=== PATIENT | female | born 1985 | race American Indian/Alaskan Native ===

== ENCOUNTER 2018-08-21 19:23 | Emergency (ER) | payer MEDICAID ==
--- NOTE | 2018-08-21 20:01 | EDM.PDOC ---
ED HPI GENERAL MEDICAL PROBLEM - General Chief Complaint: NUTRITIONAL ASSISTANT Problem Stated Complaint: PT 6WKS AND BLEEDING Time Seen by Provider: 08/21/18 19:52 - History of Present Illness INITIAL COMMENTS - FREE TEXT/NARRATIVE: HISTORY AND PHYSICAL: History of present illness: The patient is a 32-year-old female who is a one para 0 with last menstrual period July 10 and estimated gestational age of this at 6 weeks 0 days and who presents with vaginal spotting that started about 2-3 hours ago. She says that when she wipes when she goes to the bathroom she sees some blood on the toilet paper but she is not passing blood or needing to use any pads. Her last sexual intercourse was several days ago and she has only slight pelvic cramping but no urinary complaints flank pain fever chills nausea or vomiting. She says she's been eating and drinking normally. Patient said she had a confirmed by testing at the [facility] but she has not had even a quick ultrasound to document an intrauterine . She denies STDs or any gynecologic surgeries and no ectopic risk factors. She has not started her care area and she says she is very concerned because of her advanced maternal age and her symptoms. Review of systems: As per history of present illness and below otherwise all systems reviewed and negative. Past medical history: As per history of present illness and as reviewed below otherwise noncontributory. Surgical history: As per history of present illness and as reviewed below otherwise noncontributory. Social history: No reported history of drug or alcohol abuse. Family history: As per history of present illness and as reviewed below otherwise noncontributory. Physical exam: General: Well-developed well-nourished female who is nontoxic and vital signs were noted by me HEENT: Atraumatic, normocephalic, negative for conjunctival pallor or scleral icterus, mucous membranes moist, throat clear, neck supple, nontender, trachea midline. Lungs: Clear to auscultation, breath sounds equal bilaterally, chest nontender. Heart: S1S2, regular rate and rhythm no overt murmurs Abdomen: Soft, nondistended, nontender. Negative for masses or hepatosplenomegaly. Slightly hypoactive bowel sounds Pelvis: Stable nontender. Genitourinary: Deferred. Rectal: Deferred. Extremities: Atraumatic, negative for cords or calf pain. Neurovascular unremarkable. No pedal edema Neuro: Awake, alert, oriented. Cranial nerves II through XII unremarkable. Cerebellum unremarkable. Motor and sensory unremarkable throughout. Exam nonfocal. Diagnostics: UA CBC CMP serum quantitative hCG ABO pelvic ultrasound Therapeutics: Patient and significant other at bedside are aware of all testing results and I will advise close follow-up with the clinic for reevaluation and further care and advised strict pelvic rest. Impression: Threatened Definitive disposition and diagnosis as appropriate pending reevaluation and review of above. 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: Musculoskeletal History: Reports: Fracture Other Musculoskeletal History: sx L leg Neurological History: Reports: Migraines Psychiatric History: Reports: Anxiety - Infectious Disease History Infectious Disease History: Reports: Chicken Pox Social & Family History - Tobacco Use Smoking Status *Q: Former Smoker Used Tobacco, but Quit: Yes Month/Year Tobacco Last Used: 2008 - Recreational Drug Use Recreational Drug Use: Yes Recreational Drug Type: Reports: Marijuana/Hashish Recreational Drug Use Frequency: Not Used In Over 2 Months ED ROS GENERAL - Review of Systems Review Of Systems: ROS reveals no pertinent complaints other than HPI. ED EXAM, GENERAL - Physical Exam Exam: See Below (See dictation) Course - Vital Signs Last Recorded V/S: Last Vital Signs Temp 36.4 C 08/21/18 19:43 Pulse 71 08/21/18 19:43 Resp 18 08/21/18 19:43 BP 148/79 H 08/21/18 19:43 Pulse Ox 99 08/21/18 19:43 - Orders/Labs/Meds Labs: Laboratory Tests 08/21/18 08/21/18 08/21/18 Range/Units 19:41 19:41 19:54 WBC 5.86 (4.0-11.0) K/uL RBC 4.57 (4.30-5.90) M/uL Hgb 14.5 (12.0-16.0) g/dL Hct 42.7 (36.0-46.0) % MCV 93.4 (80.0-98.0) fL MCH 31.7 (27.0-32.0) pg MCHC 34.0 (31.0-37.0) g/dL RDW Std Deviation 45.3 (28.0-62.0) fl RDW Coeff of Selina 13 (11.0-15.0) % Plt Count 374 (150-400) K/uL MPV 9.40 (7.40-12.00) fL Neut % (Auto) 59.0 (48.0-80.0) % Lymph % (Auto) 27.0 (16.0-40.0) % [place] % (Auto) 13.1 (0.0-15.0) % Eos % (Auto) 0.7 (0.0-7.0) % Baso % (Auto) 0.2 (0.0-1.5) % Neut # (Auto) 3.5 (1.4-5.7) K/uL Lymph # (Auto) 1.6 (0.6-2.4) K/uL [place] # (Auto) 0.8 (0.0-0.8) K/uL Eos # (Auto) 0.0 (0.0-0.7) K/uL Baso # (Auto) 0.0 (0.0-0.1) K/uL Nucleated RBC % 0.0 /100WBC Nucleated RBCs # 0 K/uL Sodium (136-145) mmol/L Potassium (3.5-5.1) mmol/L Chloride (98-107) mmol/L Carbon Dioxide (21.0-32.0) mmol/L BUN (7.0-18.0) mg/dL Creatinine (0.6-1.0) mg/dL Est Cr Clr Drug Dosing mL/min Estimated GFR (MDRD) ml/min Glucose (74-106) mg/dL Calcium (8.5-10.1) mg/dL Total Bilirubin (0.2-1.0) mg/dL AST (15-37) IU/L ALT (14-63) IU/L Alkaline Phosphatase (46-116) U/L Total Protein (6.4-8.2) g/dL Albumin (3.4-5.0) g/dL Globulin (2.6-4.0) g/dL Albumin/Globulin Ratio (0.9-1.6) HCG, Quant mIU/mL Urine Color YELLOW Urine Appearance CLEAR Urine pH 6.0 (5.0-8.0) Ur Specific Williams 1.010 (1.001-1.035) Urine Protein NEGATIVE (NEGATIVE) mg/dL Urine Glucose (UA) NEGATIVE (NEGATIVE) mg/dL Urine Ketones NEGATIVE (NEGATIVE) mg/dL Urine Occult Blood NEGATIVE (NEGATIVE) Urine Nitrite NEGATIVE (NEGATIVE) Urine Bilirubin NEGATIVE (NEGATIVE) Urine Urobilinogen 0.2 (<2.0) EU/dL Ur Leukocyte Esterase NEGATIVE (NEGATIVE) Urine HCG, Qual POSITIVE (NEGATIVE) Blood Type 08/21/18 08/21/18 Range/Units 19:54 19:54 WBC (4.0-11.0) K/uL RBC (4.30-5.90) M/uL Hgb (12.0-16.0) g/dL Hct (36.0-46.0) % MCV (80.0-98.0) fL MCH (27.0-32.0) pg MCHC (31.0-37.0) g/dL RDW Std Deviation (28.0-62.0) fl RDW Coeff of Selina (11.0-15.0) % Plt Count (150-400) K/uL MPV (7.40-12.00) fL Neut % (Auto) (48.0-80.0) % Lymph % (Auto) (16.0-40.0) % [place] % (Auto) (0.0-15.0) % Eos % (Auto) (0.0-7.0) % Baso % (Auto) (0.0-1.5) % Neut # (Auto) (1.4-5.7) K/uL Lymph # (Auto) (0.6-2.4) K/uL [place] # (Auto) (0.0-0.8) K/uL Eos # (Auto) (0.0-0.7) K/uL Baso # (Auto) (0.0-0.1) K/uL Nucleated RBC % /100WBC Nucleated RBCs # K/uL Sodium 140 (136-145) mmol/L Potassium 3.7 (3.5-5.1) mmol/L Chloride 103 (98-107) mmol/L Carbon Dioxide 25.4 (21.0-32.0) mmol/L BUN 10 (7.0-18.0) mg/dL Creatinine 0.8 (0.6-1.0) mg/dL Est Cr Clr Drug Dosing 101.84 mL/min Estimated GFR (MDRD) > 60.0 ml/min Glucose 101 (74-106) mg/dL Calcium 9.6 (8.5-10.1) mg/dL Total Bilirubin 0.3 (0.2-1.0) mg/dL AST 32 (15-37) IU/L ALT 103 H (14-63) IU/L Alkaline Phosphatase 69 (46-116) U/L Total Protein 8.6 H (6.4-8.2) g/dL Albumin 4.0 (3.4-5.0) g/dL Globulin 4.6 H (2.6-4.0) g/dL Albumin/Globulin Ratio 0.9 (0.9-1.6) HCG, Quant 4474.0 mIU/mL Urine Color Urine Appearance Urine pH (5.0-8.0) Ur Specific Williams (1.001-1.035) Urine Protein (NEGATIVE) mg/dL Urine Glucose (UA) (NEGATIVE) mg/dL Urine Ketones (NEGATIVE) mg/dL Urine Occult Blood (NEGATIVE) Urine Nitrite (NEGATIVE) Urine Bilirubin (NEGATIVE) Urine Urobilinogen (<2.0) EU/dL Ur Leukocyte Esterase (NEGATIVE) Urine HCG, Qual (NEGATIVE) Blood Type A POSITIVE Departure - Departure Time of Disposition: 21:49 Disposition: Home, Self-Care 01 Condition: Good Clinical Impression: Threatened - Discharge Information Referrals: PCP,None [Primary Care Provider] - Forms: ED Department Discharge Additional Instructions: The following information is given to patients seen in the emergency department who are being discharged to home. This information is to outline your options for follow-up care. We provide all patients seen in our emergency department with a follow-up referral. The need for follow-up, as well as the timing and circumstances, are variable depending upon the specifics of your emergency department visit. If you don't have a primary care physician on staff, we will provide you with a referral. We always advise you to contact your personal physician following an emergency department visit to inform them of the circumstance of the visit and for follow-up with them and/or the need for any referrals to a consulting specialist. The emergency department will also refer you to a specialist when appropriate. This referral assures that you have the opportunity for followup care with a specialist. All of these measure are taken in an effort to provide you with optimal care, which includes your followup. Under all circumstances we always encourage you to contact your private physician who remains a resource for coordinating your care. When calling for followup care, please make the office aware that this follow-up is from your recent emergency room visit. If for any reason you are refused follow-up, please contact the [facility] emergency department at and ask to speak to the emergency department charge nurse. [facility] [address] [facility] [address] [place] [address] Strict pelvic rest with no sexual intercourse and nothing in the vagina until followed up in the clinic. Please connect for care so that your symptoms can be reassessed using resources given to above. Return to ER as needed and as discussed and push hydration
[2018-08-21 20:59] LABS: CHLORIDE,CL 103 mmol/L (98-107); SODIUM,NA 140 mmol/L (136-145)
--- NOTE | 2018-08-21 21:48 | US ---
INDICATION: Vaginal bleeding with pelvic cramping TECHNIQUE: Ultrasound OB pelvis transvaginal. Real time andres scale imaging of the pelvis was performed. COMPARISON: None FINDINGS: Gestational sac: Sonographic imaging demonstrates a single intrauterine gestation with a normal appearance, measuring 9 x 4 x 8 mm with estimated gestational age of 5 weeks, 2 days. Trace perichorionic hemorrhage noted.The amount of fluid within the sac appears appropriate for gestational age. Fetus: No pole or yolk sac is identified. There is a normal appearing yolk sac. Placenta: The placenta has not yet developed. Pelvis: The visualized cervix is not visualized. The visualized myometrium appears normal. The ovaries are of normal size. A thick walled corpus luteal cyst is present within the right ovary. No significant ascites noted. IMPRESSION: 1. By the 2012 Society of Radiologists in Ultrasound consensus panel criteria, there is an early intrauterine of approximately 5 weeks, 2 days in age and is of unknown viability. Followup beta HCG and ultrasound is recommended to document a normal IUP and exclude blighted ovum. 2. There is a trace paracoronal hemorrhage seen. Dictated by Damir Grullon MD @ 08/21/2018 9:45:53 PM Dictated by: Damir Grullon MD @ 08/21/2018 21:46:20 (Electronically Signed)
== END 2018-08-21 22:16 | disposition home or self-care (01) ==
LOC: MW.ED 19:23
DX: O20.0 Threatened abortion (principal); Z87.891 Personal history of nicotine dependence; Z3A.01 Less than 8 weeks gestation of pregnancy
CPT/HCPCS: 36415; 76801; 76801-26; 80053; 81003; 81025; 84702; 85025; 86900; 86901; 99284-25

== ENCOUNTER 2018-09-20 10:24 | Emergency (ER) | payer MEDICAID ==
--- NOTE | 2018-09-20 10:40 | EDM.PDOC ---
ED HPI GENERAL MEDICAL PROBLEM - General Stated Complaint: 9 WEEKS PREG. CHECK ON BABY Time Seen by Provider: 09/20/18 10:32 Source of Information: Reports: Patient History Limitations: Reports: No Limitations - History of Present Illness INITIAL COMMENTS - FREE TEXT/NARRATIVE: HISTORY AND PHYSICAL: History of present illness: Patient is a 32-year-old female who presents to the emergency room requesting an OB ultrasound. She states that this morning she had gone to the radiology department expecting that an outpatient order for an OB ultrasound had been placed by her LOGISTICS PROJECT MANAGER, Dr Dong. The radiology Department states that they had no order on file for her to receive this ultrasound. She now presents to the emergency room now content as she wants this testing completed. She states that she has had intermittent bleeding and diagnosed with threatened miscarriage since having found out she was and evaluated in the emergency room on . She has seen Dr. Dong since that evaluation and thought she had a second follow up appointment today but there was no record of this. She denies any fever, chills, chest pain, shortness of breath or cough. Denies any abdominal pain/cramping, vaginal bleeding or discharge. She has no nausea, vomiting, diarrhea, constipation or dysuria. LMP: Jul 20, 2018. She is 3, para 0. Review of systems: As per history of present illness and below otherwise all systems reviewed and negative. Past medical history: As per history of present illness and as reviewed below otherwise noncontributory. Surgical history: As per history of present illness and as reviewed below otherwise noncontributory. Social history: See social history for further information Family history: As per history of present illness and as reviewed below otherwise noncontributory. Physical exam: General: Well-developed and well-nourished 32-year-old female. Alert and oriented. Nontoxic appearing and in no acute distress. HEENT: Atraumatic, normocephalic, pupils equal and reactive bilaterally, negative for conjunctival pallor or scleral icterus, mucous membranes moist, TMs normal bilaterally, throat clear, neck supple, nontender, trachea midline. No drooling or trismus noted. No meningeal signs. No hot potato voice noted. Lungs: Clear to auscultation, breath sounds equal bilaterally, chest nontender. Heart: S1S2, regular rate and rhythm without overt murmur Abdomen: Soft, nondistended, nontender. Negative for masses or hepatosplenomegaly. Negative for costovertebral tenderness. Pelvis: Stable nontender. Genitourinary: Deferred. Rectal: Deferred. Skin: Intact, warm, dry. No lesions or rashes noted. Extremities: Atraumatic, moves all extremities per self without difficulty or deficits, negative for cords or calf pain. Neurovascular unremarkable. Neuro: Awake, alert, oriented. Cranial nerves II through XII unremarkable. Cerebellum unremarkable. Motor and sensory unremarkable throughout. Exam nonfocal. Notes: 08/21/2018 ER VISIT: Quant HCG 4,474. A positive. Transvaginal OB ultrasound done which showed a single IUP and estimating that she was 5 weeks and 2 days at that time. Currently patient is 9 weeks. Patient is tearful and very anxious at the bedside and adamant that she has an ultrasound as she was told this would be done today by her primary LOGISTICS PROJECT MANAGER to confirm that there was no further concern of threatened miscarriage. Lab work was drawn, results have yet to be received. Dr. Dong's nurse had called during this time and stated they would be able to squeeze her in for an appointment today. Patient was made aware of this and did want to leave the emergency room to be evaluated by him. Patient eloped from the emergency room and went to the women's clinic for further evaluation. Diagnostics: CBC, CMP, UA, Quant HCG, Transvaginal OB US Therapeutics: None Prescription: None Impression: First trimester Plan: Eloped prior to any testing results have returned. Definitive disposition and diagnosis as appropriate pending reevaluation and review of above. 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 ED EXAM - Physical Exam Exam: See Below (See dictation) Course - Vital Signs Last Recorded V/S: Last Vital Signs Temp 97.0 F 09/20/18 10:44 Pulse 80 09/20/18 10:44 Resp 19 09/20/18 10:44 BP 130/67 09/20/18 10:44 Pulse Ox 96 09/20/18 10:44 - Orders/Labs/Meds Orders: Active Orders 24 hr Category Date Time Status OB Transvaginal [US] Stat Exams 09/20/18 10:46 Ordered CBC WITH AUTO DIFF [HEME] Stat Lab 09/20/18 10:44 Ordered COMPREHENSIVE METABOLIC PN,CMP [CHEM] Stat Lab 09/20/18 10:45 Ordered HCG QUANTITATIVE [CHEM] Stat Lab 09/20/18 10:45 Ordered UA RFX ALCIRA AND CULT IF INDIC [URIN] Stat Lab 09/20/18 10:57 Ordered Departure - Departure Time of Disposition: 11:06 Disposition: Eloped 07 Clinical Impression: First trimester , Eloped from emergency department - Discharge Information Instructions: First Trimester of , [id number] Referrals: Merrill Dong MD [Primary Care Provider] - - My Orders Last 24 Hours: My Active Orders 09/20/18 10:44 CBC WITH AUTO DIFF [HEME] Stat 09/20/18 10:45 COMPREHENSIVE METABOLIC PN,CMP [CHEM] Stat HCG QUANTITATIVE [CHEM] Stat 09/20/18 10:46 OB Transvaginal [US] Stat 09/20/18 10:57 UA RFX ALCIRA AND CULT IF INDIC [URIN] Stat - Assessment/Plan Last 24 Hours: My Active Orders 09/20/18 10:44 CBC WITH AUTO DIFF [HEME] Stat 09/20/18 10:45 COMPREHENSIVE METABOLIC PN,CMP [CHEM] Stat HCG QUANTITATIVE [CHEM] Stat 09/20/18 10:46 OB Transvaginal [US] Stat 09/20/18 10:57 UA RFX ALCIRA AND CULT IF INDIC [URIN] Stat
[2018-09-20 12:00] LABS: CHLORIDE,CL 102 mmol/L (98-107); SODIUM,NA 137 mmol/L (136-145)
== END 2018-09-20 11:04 | disposition left against medical advice (07) ==
LOC: MW.ED 10:24
DX: Z34.90 Encounter for supervision of normal pregnancy, unspecified, unspecified trimester (principal); Z3A.09 9 weeks gestation of pregnancy; Z53.20 Procedure and treatment not carried out because of patient's decision for unspecified reasons
CPT/HCPCS: 36415; 80053; 81001; 84702; 85025; 99282